=== PATIENT | female | born 1990 | race Caucasian/White ===

== ENCOUNTER 2017-08-27 08:59 | Observation (INO) | payer SELFPAY | END 2017-08-27 12:15 | disposition home or self-care (01) | LOC: MW.OB 08:59 | PROVIDERS: ADMIT Obstetrics & Gynecology; ATTEND Obstetrics & Gynecology | DX: O42.92 Full-term premature rupture of membranes, unspecified as to length of time between rupture and onset of labor (principal); Z3A.37 37 weeks gestation of pregnancy; Z88.6 Allergy status to analgesic agent | CPT/HCPCS: 59025; 81003; 84112 ==

== ENCOUNTER 2017-09-10 07:55 | Inpatient (IN) | payer SELFPAY ==
[2017-09-10] MEDS ORDERED: Bisacodyl 10 MG Supp RECTAL PRN (08:40)
[2017-09-10] MEDS ORDERED: Benzocaine/Menthol 20%-0.5% Spray 78 GM Cannister TOP PRN (08:40)
[2017-09-10] MEDS ORDERED: Docusate Sodium 100 MG Cap PO PRN (08:40)
[2017-09-10] MEDS ORDERED: Lanolin 100% Cream 7 GM Tube TOP PRN (08:40)
[2017-09-10] MEDS ORDERED: oxyCODONE 5 MG Tab PO PRN (08:40)
[2017-09-10] MEDS ORDERED: Acetaminophen 500 MG Tab PO PRN (08:40)
[2017-09-10] MEDS ORDERED: Witch Hazel Medicated Pads 40/Jar TOP PRN (08:40)
--- NOTE | 2017-09-10 08:40 | PCM.DEL ---
L & D Note - General Info Date of Service: 09/10/17 Mother's Due Date: 09/20/17 - Delivery Note Labor: Spontaneous Delivery Outcome: Livebirth Delivery Method: Spontaneous Vaginal Delivery-Single Presentation: Vertex Nuchal Cord: None Anesthesia Type: None Amniotic Fluid Description: Clear Episiotomy Type: None Laceration: None Placenta: Intact, Spontaneous Cord: 2 Vessels Second Stage Interventions: Reports: Other (see below) (Unplanned home delivery by FOB.) - General Info Date of Service: 09/10/17 Functional Status: Reports: Pain Controlled, Tolerating Diet, Ambulating - Review of Systems General: Reports: No Symptoms HEENT: Reports: No Symptoms Pulmonary: Reports: No Symptoms Cardiovascular: Reports: No Symptoms Gastrointestinal: Reports: No Symptoms Genitourinary: Reports: No Symptoms Musculoskeletal: Reports: No Symptoms Skin: Reports: No Symptoms Neurological: Reports: No Symptoms Psychiatric: Reports: No Symptoms - Exam General: Alert, Oriented, Cooperative, No Acute Distress Lungs: Clear to Auscultation, Normal Respiratory Effort Cardiovascular: Regular Rate, Regular Rhythm, No Murmurs GI/Abdominal Exam: Normal Bowel Sounds, Soft, Non-Tender, No Organomegaly, No Distention, No Abnormal Bruit, No Mass, Pelvis Stable (Female) Exam: Normal External Exam, Normal Bimanual Exam, Vaginal Bleeding Back Exam: Normal Inspection, Full Range of Motion Extremities: Normal Inspection, Normal Range of Motion, Non-Tender, No Pedal Edema, Normal Capillary Refill Skin: Warm, Dry, Intact Wound/Incisions: Healing Well Neurological: No New Focal Deficit, Normal Gait, Normal Speech, Normal Tone, Strength Equal Bilateral Psy/Mental Status: Alert, Normal Affect, Normal Mood - Problem List & Annotations (1) (normal spontaneous vaginal delivery) SNOMED Code(s): 67870947 Code(s): O80 - ENCOUNTER FOR FULL-TERM UNCOMPLICATED DELIVERY Status: Acute Priority: High Current Visit: Yes - Problem List Review Problem List Initiated/Reviewed/Updated: Yes - Plan Plan:: Delivery A: unplanned home delivery assisted by FOB of viable female this am at 0642 this am, Placenta delivered grossly intact at 0649 with 2VC noted, Inspection noted intact perineum. APGARS unknown, Wt 5lb 10oz EBL since arrival to L&D aprox 100cc. Mother and baby stable and bonding well.
[2017-09-10] MEDS: Acetaminophen 500 MG Tab PO PRN (09:10)
--- NOTE | 2017-09-11 07:44 | PCM.DCSUM1 ---
Discharge Summary - Hospital Course Free Text/Narrative:: Discharge home with . Follow up in 6 weeks for post or sooner if needed. Diagnosis: Stroke: No - Discharge Data Discharge Date: 09/11/17 Discharge Disposition: Home, Self-Care 01 Condition: Good - Discharge Diagnosis/Problem(s) (1) (normal spontaneous vaginal delivery) SNOMED Code(s): 07358289 ICD Code: O80 - ENCOUNTER FOR FULL-TERM UNCOMPLICATED DELIVERY Status: Acute Priority: High Current Visit: Yes - Patient Instructions Diet: Usual Diet as Tolerated Activity: As Tolerated, No Strenuous Activities, Rest and Relax Today Driving: May Drive Today Showering/Bathing: May Shower Notify Provider of: Fever, Increased Pain, Swelling and Redness, Nausea and/or Vomiting Other/Special Instructions: Discharge home with infant. Follow up in 6 weeks for post or sooner if needed. - Discharge Plan Home Medications: Home Meds Albuterol [Proventil HFA] 1 puff INH Q4H PRN 08/27/17 [History] Referrals: [facility] [Outside] Rubia Dove CNM [Mid-] - 10/19/17 10:45 am - General Info Date of Service: 09/11/17 Functional Status: Reports: Pain Controlled, Tolerating Diet, Ambulating, Urinating - Review of Systems General: Reports: No Symptoms HEENT: Reports: No Symptoms Pulmonary: Reports: No Symptoms Cardiovascular: Reports: No Symptoms Gastrointestinal: Reports: No Symptoms Genitourinary: Reports: No Symptoms Musculoskeletal: Reports: No Symptoms Skin: Reports: No Symptoms Neurological: Reports: No Symptoms Psychiatric: Reports: No Symptoms - Patient Data Vitals - Most Recent: Last Vital Signs Temp 36.8 C 09/11/17 03:20 Pulse 80 09/11/17 03:20 Resp 18 09/11/17 03:20 BP 122/69 09/11/17 03:20 Pulse Ox 96 09/11/17 03:20 Med Orders - Current: Current Medications Acetaminophen (Tylenol Extra Strength) 500 mg PO Q4H PRN PRN Reason: Pain Acetaminophen (Tylenol Extra Strength) 1,000 mg PO Q4H PRN PRN Reason: Pain Last Admin: 09/10/17 09:10 Dose: 1,000 mg Benzocaine/Menthol (Dermoplast Pain Relief 20%-0.5% [place]) 78 gm TOP ASDIRECTED PRN PRN Reason: Perineal Comfort Measure Bisacodyl (Dulcolax) 10 mg RECTAL .ONCE PRN PRN Reason: Constipation Docusate Sodium (Colace) 100 mg PO BID PRN PRN Reason: Constipation Last Admin: 09/10/17 20:54 Dose: 100 mg Emollient Ointment (Lansinoh Hpa) 0 gm TOP ASDIRECTED PRN PRN Reason: Sore Nipples Last Admin: 09/10/17 20:54 Dose: 1 tube Oxycodone HCl (Oxycodone) 5 mg PO Q2H PRN PRN Reason: Pain Last Admin: 09/10/17 20:55 Dose: 5 mg Witch Carolyn (Tucks) 1 pad TOP ASDIRECTED PRN PRN Reason: comfort care - Exam General: Reports: Alert, Oriented, Cooperative, No Acute Distress Lungs: Reports: Clear to Auscultation, Normal Respiratory Effort Cardiovascular: Reports: Regular Rate, Regular Rhythm, No Murmurs GI/Abdominal Exam: Soft, Non-Tender (Female) Exam: Vaginal Bleeding Rectal (Female) Exam: Deferred Back Exam: Reports: Normal Inspection, Full Range of Motion Extremities: Normal Inspection, Normal Range of Motion, Non-Tender, No Pedal Edema, Normal Capillary Refill Skin: Reports: Warm, Dry, Intact Wound/Incisions: Reports: Healing Well Neurological: Reports: No New Focal Deficit, Normal Gait, Normal Speech, Normal Tone Psy/Mental Status: Reports: Alert, Normal Affect, Normal Mood
[2017-09-11 08:16] VITALS: BP 139/76
[2017-09-11] MEDS: Acetaminophen 500 MG Tab PO PRN (09:30)
== END 2017-09-11 14:20 | disposition home or self-care (01) | DRG 776 ==
LOC: MW.OB 07:55
PROVIDERS: ADMIT Obstetrics & Gynecology; ATTEND Obstetrics & Gynecology
DX: Z39.0 Encounter for care and examination of mother immediately after delivery (principal)
CPT/HCPCS: A9270-GY

== ENCOUNTER 2021-02-08 09:58 | Emergency (ER) | payer OTHER ==
--- NOTE | 2021-02-08 11:23 | CR ---
HISTORY: Left knee pain. TECHNIQUE: Three views of the left knee. COMPARISON: No prior. FINDINGS: There is no acute fracture or malalignment. No suprapatellar joint effusion. No significant degenerative change. No erosive change or chondrocalcinosis. IMPRESSION: 1. Joint space maintained. 2. No fracture or malalignment. Dictated by Rodrigo Gomez MD @ 02/08/2021 11:21:14 AM (Electronically Signed)
--- NOTE | 2021-02-08 11:29 | EDM.PDOC ---
ED HPI GENERAL MEDICAL PROBLEM - General Chief Complaint: Lower Extremity Injury/Pain Stated Complaint: LT KNEE PAIN Time Seen by Provider: 02/08/21 09:59 Source of Information: Reports: Patient History Limitations: Reports: No Limitations - History of Present Illness INITIAL COMMENTS - FREE TEXT/NARRATIVE: HISTORY AND PHYSICAL: History of present illness: Patient is a 30-year-old female resents emergency room today with concern of left knee injury that occurred yesterday. Patient states that she was playing a game with her family for [employer] and states that she ran on a hardwood floor and stepped on a carpet that slid. Patient states that she fell into the couch and states that her knee somewhat twisted and landed directly on the hardwood floor. Patient states that she did not hit her head or lose consciousness but states that she has had a hard time walking or bearing weight on the affected knee due to pain. Patient states that she has been icing it and taking Tylenol and denies any other associated symptoms. Patient denies fever, chills, chest pain, shortness of breath, or cough. Denies headache, neck stiff ness, change in vision, syncope, or near syncope. Denies nausea, vomiting, abdominal pain, diarrhea, constipation, or dysuria. Has not noted any blood in urine or stool. Patient has been eating and drinking appropriately. Review of systems: As per history of present illness and below otherwise all systems reviewed and negative. Past medical history: As per history of present illness and as reviewed below otherwise noncontributory. Surgical history: As per history of present illness and as reviewed below otherwise noncontributory. Social history: See social history for further information Family history: As per history of present illness and as reviewed below otherwise noncontributory. Physical exam: General: Patient is alert, oriented, and in no acute distress. Patient sitting comfortably on exam table. Vitals stable and reviewed by me. HEENT: Atraumatic, normocephalic, pupils equal and reactive bilaterally, negative for conjunctival pallor or scleral icterus, mucous membranes moist, throat clear, neck supple, nontender, trachea midline. No drooling or trismus noted. No meningeal signs. No hot potato voice noted. Lungs: Clear to auscultation, breath sounds equal bilaterally, chest nontender. Heart: S1S2, regular rate and rhythm without overt murmur Abdomen: Soft, nondistended, nontender. Negative for masses or hepatosplenomegaly. Negative for costovertebral tenderness. Pelvis: Stable nontender. Genitourinary: Deferred. Rectal: Deferred. Skin: Intact, warm, dry. No lesions or rashes noted. Extremities: Mild edema of the left knee without erythema, ecchymosis, or increase in warmth. Patient does have limited range of motion of the left knee due to pain. However, patient does have full range of motion of the remainder of the left lower extremity. Dorsalis pedis and posterior tibial pulses are grossly intact of the left lower extremity with capillary refill less than 2 seconds. All compartments soft. Otherwise, atraumatic, negative for cords or calf pain. Neurovascular unremarkable. Neuro: Awake, alert, oriented. Cranial nerves II through XII unremarkable. Cerebellum unremarkable. Motor and sensory unremarkable throughout. Exam nonfocal. Medical Decision Making: Signs and symptoms that were prompt return to the ED thoroughly discussed with patient. Discussed importance for follow-up with a primary care provider/orthopedic provider. Voices understanding and is agreeable to plan of care. Denies any further questions or concerns at this time. Diagnostics: Left knee x-ray Therapeutics: Knee immobilizer and crutches Prescription: None Impression: Left knee injury Plan: 1. Rest, ice, elevate the affected extremity. You can apply ice 15 minutes on, 15 minutes off. Use the knee immobilizer and crutches until follow-up with a primary care provider or orthopedic provider. 2. Tylenol and/or Ibuprofen as directed for pain management or discomfort. 3. Follow up with the Orthopedic provider/primary care provider as discussed. Return to the ED as needed and as discussed. Definitive disposition and diagnosis as appropriate pending reevaluation and review of above. left knee Pain Score (Numeric/FACES): 7 - Related Data Allergies Allergy/AdvReac Type Severity Reaction Status Date / Time naproxen Allergy Itching Verified 02/08/21 10:17 Home Meds: Home Meds Albuterol [Proventil HFA] 1 puff INH Q4H PRN 08/27/17 [History] Past Medical History HEENT History: Reports: Other (See Below) Other HEENT History: broken teeth Cardiovascular History: Reports: None Respiratory History: Reports: Asthma Gastrointestinal History: Reports: None Genitourinary History: Reports: None [employer] History: Reports: , Spontaneous Musculoskeletal History: Reports: None Neurological History: Reports: None Psychiatric History: Reports: None Endocrine/Metabolic History: Reports: None 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 ED EXAM, GENERAL - Physical Exam Exam: See Below (see dictation) Course - Vital Signs Last Recorded V/S: Last Vital Signs Temp 96.7 F L 02/08/21 10:15 Pulse 93 02/08/21 10:15 Resp 18 02/08/21 10:15 BP 142/84 H 02/08/21 10:15 Pulse Ox 98 02/08/21 10:15 - Orders/Labs/Meds Orders: Active Orders 24 hr Category Date Time Status DME for Discharge [COMM] Stat Oth 02/08/21 10:59 Ordered Departure - Departure Time of Disposition: 11:25 Disposition: Home, Self-Care 01 Clinical Impression: Left knee injury - Discharge Information Referrals: PCP,None [Primary Care Provider] - Additional Instructions: The following information is given to patients seen in the emergency department who are being discharged to home. This information is to outline your options for follow-up care. We provide all patients seen in our emergency department with a follow-up referral. The need for follow-up, as well as the timing and circumstances, are variable depending upon the specifics of your emergency department visit. If you don't have a primary care physician on staff, we will provide you with a referral. We always advise you to contact your personal physician following an emergency department visit to inform them of the circumstance of the visit and for follow-up with them and/or the need for any referrals to a consulting specialist. The emergency department will also refer you to a specialist when appropriate. This referral assures that you have the opportunity for follow-up care with a specialist. All of these measure are taken in an effort to provide you with optimal care, which includes your follow-up. Under all circumstances we always encourage you to contact your private physician who remains a resource for coordinating your care. When calling for follow-up care, please make the office aware that this follow-up is from your recent emergency room visit. If for any reason you are refused follow-up, please contact the [facility] Emergency Department at and asked to speak to the emergency department charge nurse. [facility] [address] [place] [id number] [facility] Specialty [facility] - [facility]opedic Clinic Professional Building [address] [facility], [address] [place] [address] [address] Easley, Orthopedist [facility] [address] [place] [address] Dr Kirkland - Dr Perry - Dr Garcias [facility] [address] [place] [address] [facility] [address] [place] [address] 1. Rest, ice, elevate the affected extremity. You can apply ice 15 minutes on, 15 minutes off. Use the knee immobilizer and crutches until follow-up with a primary care provider or orthopedic provider. 2. Tylenol and/or Ibuprofen as directed for pain management or discomfort. 3. Follow up with the Orthopedic provider/primary care provider as discussed. Return to the ED as needed and as discussed. Sepsis Event Note (ED) - Evaluation Sepsis Screening Result: No Definite Risk - Focused Exam Vital Signs: Vital Signs Temp Pulse Resp BP Pulse Ox 02/08/21 10:15 96.7 F L 93 18 142/84 H 98 - My Orders Last 24 Hours: My Active Orders 02/08/21 10:59 DME for Discharge [COMM] Stat - Assessment/Plan Last 24 Hours: My Active Orders 02/08/21 10:59 DME for Discharge [COMM] Stat
[2021-02-08 14:42] VITALS: BP 102/61; PULSE 78
== END 2021-02-08 11:48 | disposition home or self-care (01) ==
LOC: MW.ED 09:58
DX: S89.92XA Unspecified injury of left lower leg, initial encounter (principal); J45.909 Unspecified asthma, uncomplicated; Z88.6 Allergy status to analgesic agent; X50.1XXA Overexertion from prolonged static or awkward postures, initial encounter; Y93.02 Activity, running
CPT/HCPCS: 73562-26-LT; 73562-LT; 99283

== ENCOUNTER 2021-07-23 09:21 | Emergency (ER) | payer OTHER ==
[2021-07-23] MEDS ORDERED: Ibuprofen 600 MG Tab PO ONE (09:30)
[2021-07-23] MEDS ORDERED: Acetaminophen 325 MG Tab PO ONE (09:33)
[2021-07-23 11:25] VITALS: BP 100/55; PULSE 78
== END 2021-07-23 11:20 | disposition home or self-care (01) ==
LOC: MW.ED 09:21
DX: O9A.23 Injury, poisoning and certain other consequences of external causes complicating the puerperium (principal); S80.02XA Contusion of left knee, initial encounter; Z88.5 Allergy status to narcotic agent; Z3A.15 15 weeks gestation of pregnancy; V49.49XA Driver injured in collision with other motor vehicles in traffic accident, initial encounter; Y92.410 Unspecified street and highway as the place of occurrence of the external cause
CPT/HCPCS: 73562; 99284; A9270; 99282

== ENCOUNTER 2022-01-06 21:50 | Inpatient (IN) | payer OTHER ==
[2022-01-06] MEDS ORDERED: Sodium Chloride 0.9% 10 ML Syringe FLUSH PRN (22:43)
[2022-01-06] MEDS ORDERED: Misoprostol 200 MCG Tab PO PRN (22:43)
[2022-01-06] MEDS ORDERED: Tranexamic Acid 1,000 MG in Sodium Chloride 0.9% 100 ML IV PRN (22:43)
[2022-01-06] MEDS ORDERED: Ondansetron 4 MG/2 ML SDV IVPUSH PRN (22:43)
[2022-01-06] MEDS ORDERED: Lidocaine 1% 50 ML MDV INJECT PRN (22:43)
[2022-01-06] MEDS ORDERED: Methylergonovine 0.2 MG/1 ML Amp IM PRN (22:43)
[2022-01-06] MEDS ORDERED: Carboprost Tromethamine 250 MCG/1 ML Amp IM PRN (22:43)
[2022-01-06] MEDS ORDERED: Butorphanol 1 MG/ML SDV IVPUSH PRN (22:43)
[2022-01-06] MEDS ORDERED: Sodium Chloride 0.9% 20 ML SDV IV PRN (22:43)
[2022-01-06] MEDS ORDERED: Sodium Chloride 0.9% 2.5 ML Syringe FLUSH PRN (22:43)
[2022-01-06] MEDS ORDERED: Water For Irrigation,Sterile 1,000 ML Container IRR PRN (22:43)
[2022-01-06] MEDS ORDERED: Lactated Ringers 1,000 ML IV SCH (22:45)
[2022-01-06] MEDS ORDERED: Oxytocin/0.9 % Sodium Chloride 30 UNIT/500 ML BAG IV SCH (22:45)
[2022-01-07] MEDS ORDERED: diphenhydrAMINE 50 MG Cap PO PRN (00:25)
[2022-01-07] MEDS ORDERED: Bisacodyl 10 MG Supp RECTAL PRN (00:25)
[2022-01-07] MEDS ORDERED: Docusate Sodium 100 MG Cap PO PRN (00:25)
[2022-01-07] MEDS ORDERED: Ibuprofen 400 MG Tab PO PRN (00:25)
[2022-01-07] MEDS ORDERED: Lanolin 100% Cream 7 GM Tube TOP PRN (00:25)
[2022-01-07] MEDS ORDERED: Benzocaine/Menthol 20%-0.5% Spray 78 GM Cannister TOP PRN (00:25)
[2022-01-07] MEDS ORDERED: Witch Hazel Medicated Pads 40/Jar TOP PRN (00:25)
[2022-01-07] MEDS ORDERED: Acetaminophen 500 MG Tab PO PRN (00:25)
[2022-01-07] MEDS: Acetaminophen 500 MG Tab PO PRN ×2 (02:40→08:53)
[2022-01-07] MEDS: Ibuprofen 800 MG Tab PO PRN ×2 (02:40→08:57)
[2022-01-07] MEDS ORDERED: Nicotine 21 MG/24 Hr Patch TRDERM SCH (09:00)
[2022-01-07 22:56] VITALS: BP 131/72; PULSE 88
== END 2022-01-08 02:00 | disposition home or self-care (01) | DRG 807 ==
LOC: MW.OBCHECK 21:50 → MW.OB 21:50 → MW.OBCHECK 22:44 → OBSVTOIN 23:48 → MW.OB 01-07 02:31
PROVIDERS: ADMIT Obstetrics & Gynecology; ATTEND Obstetrics & Gynecology Obstetrics
PROC: 10E0XZZ Delivery of Products of Conception, External Approach (ICD-10-PCS; principal; 2022-01-07)
DX: O62.3 Precipitate labor (principal); Z37.0 Single live birth; Z3A.40 40 weeks gestation of pregnancy
CPT/HCPCS: 36415; 59025; 59409; 85027; 86592; 86850; 86900; 86901; A9270-GY; J2590; J7120; U0002